=== PATIENT | male | born 1950 | race Caucasian/White ===

== ENCOUNTER 2023-09-04 15:43 | Day surgery (SDC) | payer MEDICARE, BC ==
[2023-09-04] MEDS ORDERED: Sodium Chloride 0.9% 10 ML Syringe FLUSH PRN ×2 (16:06→17:03)
[2023-09-04] MEDS ORDERED: HYDROmorphone 0.5 MG/0.5 ML Syringe IVPUSH ONE (16:07)
[2023-09-04] MEDS ORDERED: LORazepam 2 MG/ML SDV IVPUSH ONE (16:07)
[2023-09-04] MEDS ORDERED: Ondansetron 4 MG Tab.DIS PO ONE (16:08)
[2023-09-04 16:33] LABS: BASOPHILS ABSOLUTE AUTO 0.1 K/mm3 (0.0-0.2); BASOPHILS PERCENT AUTO 0.9 % (0.0-1.0); EOSINOPHILS ABSOLUTE AUTO 0.4 K/mm3 (0.0-0.4); EOSINOPHILS PERCENT AUTO 4.9 % (0.0-6.0); HEMATOCRIT 41.6 % (42.0-52.0); HEMOGLOBIN 14.5 gm/dl (14.0-18.0); IMMATURE GRAN ABSOLUTE AUTO 0.02 K/mm3 (0.00-0.05); IMMATURE GRAN PERCENT AUTO 0.2 % (0.0-0.4); LYMPHOCYTES ABSOLUTE AUTO 2.3 K/mm3 (1.0-4.8); LYMPHOCYTES PERCENT AUTO 28.3 % (24.0-44.0); MEAN CORPUSCULAR HEMOGLOBIN 30.5 pg (28.0-32.0); MEAN CORPUSCULAR HGB CONC 34.9 g/dl (32.0-36.0); MEAN CORPUSCULAR VOLUME 87.4 fl (83.0-99.0); MEAN PLATELET VOLUME 9.8 fl (9.4-12.4); MONOCYTES ABSOLUTE AUTO 0.7 K/mm3 (0.0-0.8); MONOCYTES PERCENT AUTO 8.8 % (0.0-8.0); NEUTROPHILS ABSOLUTE AUTO 4.7 K/mm3 (1.8-7.7); NEUTROPHILS PERCENT AUTO 56.9 % (41.0-71.0); PLATELET COUNT,PLT 269 K/mm3 (150-400); RED BLOOD CELL COUNT 4.76 M/mm3 (4.52-5.90); WHITE BLOOD CELL COUNT,WBC 8.22 K/mm3 (3.9-11.3)
[2023-09-04] MEDS: Sodium Chloride 0.9% 1,000 ML IV SCH ×2 (16:40→22:47)
[2023-09-04 16:57] LABS: A/G RATIO 0.8 (1-2); ALBUMIN 3.6 g/dl (3.4-5.0); ANION GAP 15.8 (5-15); BILIRUBIN TOTAL 0.3 mg/dL (0.2-1.0); BUN/CREATININE RATIO 19.2 (14-18); CALCIUM 9.3 mg/dL (8.5-10.1); CREATININE 1.3 mg/dL (0.7-1.3); EST CRCL DRUG DOSING (CG) 47.32 mL/min; POTASSIUM,K 3.8 mEq/L (3.5-5.1); PROTEIN TOTAL,TP 8.3 g/dl (6.4-8.2)
[2023-09-04] MEDS ORDERED: Iopamidol 612 MG/ML 100 ML Bottle IVPUSH ONE (17:03)
[2023-09-04] MEDS ORDERED: Lidocaine 1% 30 ML SDV ONE (18:11)
[2023-09-04] MEDS ORDERED: EPINEPHrine 1 MG/ML SDV ONE (18:11)
[2023-09-04] MEDS ORDERED: Bupivacaine 0.5% 30 ML SDV ONE (18:11)
[2023-09-04] MEDS ORDERED: ceFAZolin 2 GM in Sodium Chloride 0.9% 50 ML IV ONE (18:18)
[2023-09-04] MEDS ORDERED: Midazolam 1 MG/ML 2 ML SDV ONE (19:04)
[2023-09-04] MEDS ORDERED: Propofol 200 MG/20 ML SDV ONE ×2 (19:07→19:14)
[2023-09-04] MEDS ORDERED: fentaNYL 100 MCG/2 ML SDV ONE (19:10)
[2023-09-04] MEDS ORDERED: Ondansetron 4 MG/2 ML SDV IVPUSH PRN (19:51)
[2023-09-04] MEDS ORDERED: fentaNYL 100 MCG/2 ML SDV IVPUSH PRN (19:51)
[2023-09-04] MEDS ORDERED: HYDROmorphone 0.5 MG/0.5 ML Syringe IVPUSH PRN (19:51)
[2023-09-04] MEDS ORDERED: ceFAZolin 2 GM Vial ONE (20:00)
[2023-09-04] MEDS ORDERED: Ibuprofen 400 MG Tab PO PRN ×2 (22:11→22:19)
[2023-09-04] MEDS ORDERED: Acetaminophen/oxyCODONE 325-5 MG Tab PO PRN (22:13)
== END 2023-09-05 08:18 | disposition home or self-care (01) ==
LOC: JD.ED 15:43 → JD.SDS 17:54
PROVIDERS: ATTEND Surgery
DX: K40.30 Unilateral inguinal hernia, with obstruction, without gangrene, not specified as recurrent (principal); D17.6 Benign lipomatous neoplasm of spermatic cord; Z91.048 Other nonmedicinal substance allergy status
CPT/HCPCS: 36415; 49507; 74177; 80053; 83690; 85025; 93005; 96374; 96375; 99285; A9270; J0171; J0665; J0690; J1170; J2060; J2250; J2704; J3010; J3490; J7030; Q9967; C1781

== ENCOUNTER 2024-10-29 15:38 | Emergency (ER) | payer MEDICARE, BC ==
[2024-10-29 17:57] LABS: BASOPHILS PERCENT AUTO 0.2 % (0.0-1.0); EOSINOPHILS PERCENT AUTO 0.1 % (0.0-6.0); HEMATOCRIT 45.3 % (42.0-52.0); HEMOGLOBIN 15.4 gm/dl (14.0-18.0); IMMATURE GRAN ABSOLUTE AUTO 0.06 K/mm3 (0.00-0.05); IMMATURE GRAN PERCENT AUTO 0.4 % (0.0-0.4); LYMPHOCYTES ABSOLUTE AUTO 1.1 K/mm3 (1.0-4.8); LYMPHOCYTES PERCENT AUTO 7.2 % (24.0-44.0); MEAN CORPUSCULAR HEMOGLOBIN 30.1 pg (28.0-32.0); MEAN CORPUSCULAR VOLUME 88.5 fl (83.0-99.0); MEAN PLATELET VOLUME 9.9 fl (9.4-12.4); MONOCYTES ABSOLUTE AUTO 1.3 K/mm3 (0.0-0.8); MONOCYTES PERCENT AUTO 9.1 % (0.0-8.0); PLATELET COUNT,PLT 267 K/mm3 (150-400); RED BLOOD CELL COUNT 5.12 M/mm3 (4.52-5.90); WHITE BLOOD CELL COUNT,WBC 14.49 K/mm3 (3.9-11.3)
[2024-10-29 18:22] LABS: A/G RATIO 0.9 (1-2); ALBUMIN 4.1 g/dl (3.4-5.0); ANION GAP 20.4 (5-15); BILIRUBIN TOTAL 0.9 mg/dL (0.2-1.0); BUN/CREATININE RATIO 17.3 (14-18); C-REACTIVE PROTEIN 2.56 mg/dL (<0.30); CREATININE 1.5 mg/dL (0.7-1.3); EST CRCL DRUG DOSING (CG) 38.99 mL/min; POTASSIUM,K 4.4 mEq/L (3.5-5.1); PROTEIN TOTAL,TP 8.8 g/dl (6.4-8.2)
[2024-10-29] MEDS: Iopamidol 612 MG/ML 100 ML Bottle IVPUSH ONE (19:21)
[2024-10-29] MEDS: Sodium Chloride 0.9% 10 ML Syringe FLUSH PRN (19:28)
[2024-10-29] MEDS: Sodium Chloride 0.9% 1,000 ML IV STA (20:02)
[2024-10-29 23:17] LABS: APPEARANCE,URINE CLEAR (Clear); BILIRUBIN,URINE NEGATIVE (Negative); COLOR,URINE YELLOW (Yellow); GLUCOSE,URINE NEGATIVE (Negative); KETONES,URINE 1+ (Negative); LEUKOCYTE ESTERASE,URINE TRACE (Negative); NITRITE,URINE NEGATIVE (Negative); OCCULT BLOOD,URINE 2+ (Negative); PROTEIN,URINE NEGATIVE (Negative); UROBILINOGEN,URINE 0.2 (0.2-1.0)
[2024-10-29] MEDS: Lidocaine 2% 11 ML Jelly Filled Syringe MUCMEM ONE (23:21)
[2024-10-29] MEDS: Magnesium Citrate Solution 296 ML Bottle PO ONE (23:26)
[2024-10-29] MEDS: Amoxicillin/Clavulanate K 875-125 MG Tab PO ONE (23:26)
[2024-10-29 23:31] LABS: RBC,URINE 30-40 /hpf (0-5)
[2024-10-29 23:32] LABS: BACTERIA,URINE RARE /hpf (FEW); EPITHELIAL CELLS,URINE 0-5 /hpf (0-5); MUCUS,URINE NOT SEEN /hpf (FEW); WBC CLUMPS,URINE RARE /hpf (NOT SEEN)
== END 2024-10-29 23:46 | disposition home or self-care (01) ==
LOC: JD.ED 15:38
DX: K52.9 Noninfective gastroenteritis and colitis, unspecified (principal); K59.00 Constipation, unspecified; R33.9 Retention of urine, unspecified; Z79.899 Other long term (current) drug therapy; Z91.018 Allergy to other foods
CPT/HCPCS: 36415; 51702; 74019; 74177; 80053; 81001; 83605; 85025; 86140; 87086; 96360; 99284; A9270; J7030; Q9967

== ENCOUNTER 2024-11-19 13:46 | Emergency (ER) | payer MEDICARE, BC ==
[2024-11-19 15:28] LABS: APPEARANCE,URINE TURBID (Clear); BILIRUBIN,URINE NEGATIVE (Negative); COLOR,URINE YELLOW (Yellow); GLUCOSE,URINE NEGATIVE (Negative); KETONES,URINE NEGATIVE (Negative); LEUKOCYTE ESTERASE,URINE 2+ (Negative); NITRITE,URINE POSITIVE (Negative); OCCULT BLOOD,URINE 3+ (Negative); PROTEIN,URINE 3+ (Negative); UROBILINOGEN,URINE 0.2 (0.2-1.0)
[2024-11-19 15:44] LABS: RBC,URINE >100 /hpf (0-5); WBC,URINE 50-75 /hpf (0-5)
[2024-11-19 15:45] LABS: BACTERIA,URINE MANY /hpf (FEW); MUCUS,URINE FEW /hpf (FEW); SQUAMOUS EPITHELIAL CELLS,UR 0-5 /hpf (0-5)
[2024-11-19] MEDS: Cefdinir 300 MG Cap PO ONE (16:21)
== END 2024-11-19 16:10 | disposition home or self-care (01) ==
LOC: JD.ED 13:46
DX: N30.01 Acute cystitis with hematuria (principal); Z91.018 Allergy to other foods; Z79.899 Other long term (current) drug therapy
CPT/HCPCS: 51702; 81001; 87086; 99283; A9270-GY

== ENCOUNTER 2024-12-10 12:49 | Emergency (ER) | payer MEDICARE, BC | END 2024-12-10 14:15 | disposition home or self-care (01) | LOC: JD.ED 12:49 | DX: T83.031A Leakage of indwelling urethral catheter, initial encounter (principal); N39.0 Urinary tract infection, site not specified; Z91.018 Allergy to other foods; Z79.899 Other long term (current) drug therapy | CPT/HCPCS: 99283 ==